=== PATIENT | male | born 1990 | race Caucasian/White ===

== ENCOUNTER 2020-09-27 08:26 | Emergency (ER) | payer MEDICAID, SELFPAY ==
[2020-09-27 08:28] VITALS: BP 143/70; PULSE 97; RESP 20; TEMP 36.6; O2SAT 97; BMI 20.7
--- NOTE | 2020-09-27 08:48 | HMH.EDGENADL ---
ED Disposition Clinical Impression: Sprain of left shoulder Qualifiers: Encounter type: initial encounter Shoulder sprain type: unspecified sprain Qualified Code(s): S43.402A - Unspecified sprain of left shoulder joint, initial encounter Disposition: Home, Self-Care Condition on Discharge: Good Instructions: How to Use a Sling, DI for Shoulder Sprain Additional Instructions: Sling as needed for 3 to 4 days. Ibuprofen for pain. Ice for pain and swelling. Follow-up with orthopedics, Dr. Mendez, call for appointment. Prescriptions: Ibuprofen [Ibuprofen 800mg Tablet] 800 mg PO Q8HP PRN #15 tab PRN Reason: Moderate Pain Transmission Status: Received by [facility] Referrals: Everette Cross MD [Primary Care Provider] - Sathish Mendez MD [Staff Physician] - - Critical Care Critical Care Time: No Attestation: On 09/27/20, the high probability of a clinically significant, sudden or life threatening deterioration of the following system(s) required my full and direct attention, intervention and personal management. The time I documented below is in addition to time spent performing reported procedures but includes the following listed in this critical care notation. Medical Decision Making - Fawad Inquiry Pt receiving controlled substance: No Vital Signs: 09/27/20 08:28 09/27/20 09:19 Temperature 97.8 F Temperature Source Oral Pulse Rate 82 Pulse Rate [Right Brachial] 97 H Respiratory Rate 20 Blood Pressure [Right Arm] 143/70 H Blood Pressure Mean [Right Arm] 94 Blood Pressure Source [Right Arm] Automatic Cuff 02 Sat by Pulse Oximetry 97 98 Oxygen Delivery Method Room Air Orders (Tests/Meds): ED MEDICATIONS Discontinued Medications Generic Name Dose Route Start Last Admin Trade Name Freq PRN Reason Stop Dose Admin Ibuprofen 800 mg 09/27/20 09:15 09/27/20 09:16 Ibuprofen 400 Mg Tablet PO 09/27/20 09:16 800 mg ONCE ONE Administration ORDERS Category Date Time Status Shoulder XR left minimum 2 views [XR shoulder LT min 2V Exams 09/27/20 08:53 Taken ] Stat - Radiology Data #1 Image(s): Shoulder Image Reviewed: Yes I reviewed the patient's radiology image Preliminary Findings: Normal/NAD Medical Decision Narrative: Findings consistent with a left shoulder sprain, possibly involving rotator cuff. Advised to follow-up with orthopedics for further evaluation and treatment. General Adult HPI - General Chief complaint: Extremity Injury, Upper Stated complaint: [id number] injured left shoulder Time Seen by Provider: 09/27/20 08:48 Mode of Arrival: Ambulatory Limitations: No Limitations Description of Symptoms (Recalled from ER Triage Doc. by RN): Pt c/o left shoulder pain, rates 6/10 on [facility] [employer] consatnly and 8/10 when moving shouler up. Pt states yesterday that he was liftin a piece of machinary that weighs 400lbs with another person and felt 2 pops when he was lifting it. Pt denies any tingling or numbness to left hand/arm. Pt reports he feels that it is swollen. - History of Present Illness HPI narrative: Injured his left shoulder yesterday picking up a large heavy object. Foster 2 pops in his shoulder. Now has pain which she locates is being posterior, anterior, and subacromial. Pain is worse when he tries to raise his arm. He cannot raise it above shoulder height. Has pain with external rotation as well. No numbness or weakness. No significant prior shoulder problems. He took Aleve this morning which she says has not helped, but currently declines any pain medication in the emergency department. - Related Data Home Medications Medication Instructions Recorded Confirmed Acetaminophen [Tylenol 325mg 325 mg PO DIRECTED PRN 09/27/20 09/27/20 Tablet] Naproxen Sodium [Aleve 220mg Tab] 220 mg PO DIRECTED 09/27/20 09/27/20 Previous Rx's Medication Instructions Recorded Ibuprofen [Ibuprofen 800mg 800 mg PO Q8HP P
--- NOTE | 2020-09-27 08:53 | XR_ITS ---
PROCEDURE: XR SHOULDER LT MIN 2V CLINICAL INDICATION: injury, pain COMPARISON: CR XR CHEST 2V from 07/18/2019 FINDINGS: Glenohumeral joint and acromioclavicular joint have an unremarkable appearance. There is a curvilinear area of sclerosis involving the lateral aspect of the scapula in the subglenoid region. This is of questionable clinical significance. An impaction type injury is not totally excluded. Please correlate as the patient's area of pain and tenderness. The joint spaces are well-preserved. No significant degenerative/arthritic changes. No erosive changes evident. Other findings:None. IMPRESSION: Curvilinear sclerotic area in the lateral subglenoid portion of the scapula. Etiology indeterminate. Cannot exclude impaction type injury. If there is focal pain and tenderness in this area then, CT may provide further evaluation. Dictated by: Jordan Mcnair MD 09/27/2020 11:20 Jordan Mcnair MD in [place] 09/27/2020 11:20
[2020-09-27 09:19] VITALS: PULSE 82; O2SAT 98
[2020-09-27 09:40] VITALS: BP 146/87; PULSE 84; RESP 18; TEMP 36.6; O2SAT 98
== END 2020-09-27 09:43 | disposition home or self-care (01) ==
PROVIDERS: Emergency Provider Emergency Medicine; PCP Family Medicine
DX: S43.402A Unspecified sprain of left shoulder joint, initial encounter (principal); X50.0XXA Overexertion from strenuous movement or load, initial encounter; Y92.89 Other specified places as the place of occurrence of the external cause; Z88.5 Allergy status to narcotic agent; F17.210 Nicotine dependence, cigarettes, uncomplicated
CPT/HCPCS: 73030; 99282